=== PATIENT | female | born 1980 | race African-American/Black ===

== ENCOUNTER 2021-08-07 11:26 | Emergency (ER) | payer SELFPAY ==
[~2021-08-07] VITALS: Ht 157.5 cm; Wt 117.0 kg
[~2021-08-07 11:26] MED LIST: AMIT10TA6 PO; DIPH25CA83 PO; DOCU-138 PO; FERR-63 PO; IBUP-2030 PO; IBUPROFEN; LORA0.5T2 PO; NORE1TAB74 PO
[2021-08-07] MEDS ORDERED: HYDROCODONE/ACETAMINOPHEN 5/325MG TABLET PO ONE (12:15)
[2021-08-07] MEDS ORDERED: IBUPROFEN 600MG TABLET PO ONE (14:45)
[2021-08-07] MEDS ORDERED: IBUP-2029 MT (15:12)
[2021-08-07 15:50] VITALS: BP 171/101
== END 2021-08-07 15:49 | disposition home or self-care (01) ==
LOC: ER 11:26
DX: S89.82XA Other specified injuries of left lower leg, initial encounter (principal); F41.9 Anxiety disorder, unspecified; D57.1 Sickle-cell disease without crisis; Z98.51 Tubal ligation status; Z88.5 Allergy status to narcotic agent; W18.2XXA Fall in (into) shower or empty bathtub, initial encounter; Y93.E1 Activity, personal bathing and showering; Y92.012 Bathroom of single-family (private) house as the place of occurrence of the external cause
CPT/HCPCS: 73562; 99283; L1830; Z7610

== ENCOUNTER 2023-02-27 15:08 | Emergency (ER) | payer MEDICAID, OTHER ==
[~2023-02-27] VITALS: Ht 165.1 cm; Wt 91.0 kg
[~2023-02-27 15:08] MED LIST changes: +IBUP-2029 MT
[2023-02-27 15:21] VITALS: TEMP 98.3; O2SAT 98
[2023-02-27] MEDS ORDERED: IBUP-2029 MT (20:02)
[2023-02-27 20:22] VITALS: BP 152/100; PULSE 83; RESP 16
== END 2023-02-27 20:12 | disposition home or self-care (01) ==
LOC: ER 15:08
DX: I10 Essential (primary) hypertension (principal); Z88.5 Allergy status to narcotic agent; Z79.899 Other long term (current) drug therapy; Z98.890 Other specified postprocedural states; Z98.51 Tubal ligation status
CPT/HCPCS: 99284